=== PATIENT | male | born 1975 | race Caucasian/White ===

== ENCOUNTER 2018-01-26 11:30 | Emergency (ER) | payer SELFPAY ==
--- NOTE | 2018-01-26 12:59 | EDM.PDOC ---
ED HPI GENERAL MEDICAL PROBLEM - General Chief Complaint: CPR in Progress Stated Complaint: [facility] Time Seen by Provider: 01/26/18 11:58 Source of Information: Reports: EMS, Family History Limitations: Reports: Other (unresponsive) - History of Present Illness INITIAL COMMENTS - FREE TEXT/NARRATIVE: The patient was sitting down with his uncle and he grabbed his head and fell over. He stopped breathing and did not have a pulse. 911 was called and CPR was started right away. EMS arrived shortly after 911 was called. He was defibrillated multiple times. They put an LMA in and got an IV in the left arm and an IO on the left leg. He was given multiple doses of epinephrine, magnesium and sodium bicarb. It did appear the patient was in [place]. According to his uncle, the patient just had asthma and no heart disease, hypertension, hypercholesterolemia, and he did not smoke. 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 He did complain of some chest discomfort yesterday but he thought nothing of it because of his asthma. Onset: Sudden Duration: Minutes: (10:50am) Severity: Mild Worsens with: Reports: None Associated Symptoms: Reports: No Other Symptoms ED ROS GENERAL - Review of Systems Review Of Systems: Unable To Obtain ED EXAM, CPR - Physical Exam Exam: See Below Limited By: Unresponsive General Appearance: Obtunded Eye Exam: Bilateral Eye: PERRL (2mm and fixed) Ears: Normal External Exam Nose: Normal Inspection Throat/Mouth: Other (LMA in place) Head: Atraumatic, Normocephalic Respiratory Chest: Other (Bilateral lung sounds with some rhonchi) Cardiovascular: CPR In Progress (Pulse is felt) Neurological: Unresponsive Course - Re-Assessments/Exams Free Text/Narrative Re-Assessment/Exam: 01/26/18 13:07 When the patient arrived his was not breathing and he had no pulse. He had an LMA in and there were good breath sounds. He had a good IV in the left arm and an IO in his leg. CPR was being performed by MINDA compression device so we continued that. We did multiple rhythm checks and he was in V-fib every time and we did defibrilate. We gave multiple doses of epinephrine, fluid bolus, amiodarone 300mg IV, bicarb and calcium chloride. We never got a pulse back. He had been down for about 62 minutes. I pronounced him at 11:52. I called Dr Marcial out tariff clerk and he came to see the patient. I talked with his uncle. Critical care time is 45 minutes. Departure - Departure Time of Disposition: 13:20 Disposition: 20 Preliminary Cause of *Q: Cardiac Arrest Clinical Impression: Cardiac arrest Acute [place] Qualifiers: Myocardial infarction type: unspecified Involved coronary artery: unspecified coronary artery Qualified Code(s): I21.9 - Acute myocardial infarction, unspecified - Discharge Information Forms: ED Department Discharge
[2018-01-26] MEDS ORDERED: Amiodarone 150 MG/3 ML SDV ONE (13:00)
[2018-01-26] MEDS ORDERED: EPINEPHrine 1:10,000 1 MG/10 ML Syringe ONE (13:00)
[2018-01-26] MEDS ORDERED: Calcium Chloride 10% 1 GM/10 ML Syringe ONE (13:00)
[2018-01-26] MEDS ORDERED: Sodium Bicarbonate 8.4% 50 MEQ/50 ML Syringe ONE (13:00)
== END 2018-01-26 15:10 | disposition expired ==
LOC: EDBD 11:30 → JD.ED 11:30
DX: I46.9 Cardiac arrest, cause unspecified (principal)
CPT/HCPCS: 92950; 96374; 96375; 99291; J0171; J0282